=== PATIENT | male | born 1980 | race African-American/Black ===

== ENCOUNTER 2017-11-22 00:04 | Emergency (ER) | payer SELFPAY ==
[~2017-11-22] VITALS: Ht 182.9 cm; Wt 120.0 kg
[2017-11-22 00:07] VITALS: BP 173/91; PULSE 108; RESP 18; TEMP 98.6; O2SAT 100
[2017-11-22 00:13] VITALS: BP 168/88; PULSE 98; RESP 20; TEMP 98.6; O2SAT 98
[2017-11-22] MEDS ORDERED: KETOROLAC TROMETHAMINE 60 MG/2 ML (IM) VIAL IM ONE (00:45)
--- NOTE | 2017-11-22 00:57 | PD ---
HPI Chief Complaint: Back/ Neck Pain or Injury Time Seen by Provider: 00:29 Travel History International Travel<30 days: No Contact w/Intl Traveler<30days: No Traveled to known affect area: No History of Present Illness HPI Is a 37-year-old presents to the emergency department complaining of neck pain. He states he injured himself at work the other day when he was resting with his chin on his hand and then stood up quickly and felt pain in his neck. He states he had tightness in his neck but felt better after he stretched it out and slept. States he felt fine until today he was putting grease in his hair he feels like he was pushing down too hard on the top of his head and felt pain in his neck and it radiated to his left arm with some tingling. He has had pain and stiffness in his neck and tingling since. Otherwise had been feeling generally well and healthy. No other complaints. History Past Medical History Medical History: Denies Significant Hx Social History Alcohol Use: No Tobacco Use: Yes Allergies-Medications (Allergen,Severity, Reaction): Coded Allergies: No Known Allergies (Unverified , 11/22/17) Reported Meds & Prescriptions Reported Meds & Active Scripts Active No Active Prescriptions or Reported Medications Review of Systems Except as stated in HPI: all other systems reviewed are Neg Physical Exam Narrative GENERAL: 37-year-old man, no acute distress. SKIN: Focused skin assessment warm/dry. HEAD: Atraumatic. Normocephalic. EYES: Pupils equal and round. No scleral icterus. No injection or drainage. ENT: No nasal bleeding or discharge. Mucous membranes pink and moist. NECK: Trachea midline. No JVD. CARDIOVASCULAR: Regular rate and rhythm. No murmur appreciated. RESPIRATORY: No accessory muscle use. Clear to auscultation. Breath sounds equal bilaterally. GASTROINTESTINAL: Abdomen soft, non-tender, nondistended. Hepatic and splenic margins not palpable. MUSCULOSKELETAL: No obvious deformities. No clubbing. No cyanosis. No edema. NEUROLOGICAL: Awake and alert. Strength full and equal upper and lower extremities. Sensation intact to light touch both upper extremities. Full range of motion. Full movement. Minimal tenderness in the left paraspinous muscles in the left trapezius muscles. Some stiffness of range of motion of the neck. Data Data Last Documented VS Vital Signs Date Time Temp Pulse Resp B/P (MAP) Pulse Ox O2 Delivery O2 Flow Rate FiO2 11/22/17 00:13 98.6 98 20 168/88 (114) 98 Room Air Orders Orders Ct Cerv Spine W/O Contrast (11/22/17 ) Ketorolac Inj (Toradol Inj) (11/22/17 00:45) MDM Medical Decision Making Medical Screen Exam Complete: Yes Emergency Medical Condition: Yes Interpretation(s) CT cervical spine negative Differential Diagnosis Strain or sprain, neck strain with radiculopathy, herniated disc, neck injury, dissection, other Narrative Course Medical decision making 37-year-old man presents emerged from complaining of neck pain and some stiffness with some shooting pains in the left arm associated with rapid abnormal movement of the neck. Initially when he first stood up, now he was pushing down putting product in his hair. This does not really seem consistent with dissection. He is any significant bony injury. Will check CT scan of his neck. Likely supportive treatment. Diagnosis Primary Impression: Neck strain Additional Instructions: Take naproxen as prescribed. Drink plenty fluids stay well-hydrated. Follow-up with your primary doctor for not completely well in 3-5 days. Return to the emergency department for any worsening pain, numbness, tingling, weakness, or any other new or worsening symptoms. Med/Other Pt SpecificInfo: Prescription(s) given Scripts Naproxen (Naproxen) 500 Mg Tab 500 MG PO BID for 10 Days, #20 TAB 0 Refills Prov: Matty Elizabeth MD 11/22/17 Disposition: DISCHARGE HOME Condition: Stable Matty Elizabeth MD Nov 22, 2017 00:57
--- NOTE | 2017-11-22 01:27 | RADRPT ---
EXAM DATE: 11/22/2017 1:16 AM EDT AGE/SEX: 37 years / Male INDICATIONS: Trauma. Neck pain. CLINICAL DATA: This is the patient's initial encounter. Patient reports that signs and symptoms have been present for 2 days and indicates a pain score of 6/10. MEDICAL/SURGICAL HISTORY: None. Umbilical hernia repair. RADIATION DOSE: 22.02 CTDI (mGy) COMPARISON: No prior exams available for comparison. TECHNIQUE: Contiguous axial images were obtained using helical multirow detector technique. The vol umetric data was post-processed with multiplanar reconstruction in oblique axial, sagittal, and coron al planes. Using automated exposure control and adjustment of the mA and/or kV according to patient s ize, radiation dose was kept as low as reasonably achievable to obtain optimal diagnostic quality kartik ges. DICOM format image data is available electronically for review and comparison. FINDINGS: Vertebrae: Normal vertebral body height. Alignment: Normal. No subluxation. Discs: This space heights are preserved. There is mild anterior spurring at C5-6 and C6-7 levels. The axial images demonstrate that the vertebral bodies and posterior elements are intact. There is no large disc protrusion. Soft tissues are within normal limits. CONCLUSION: 1. Negative trauma CT Electronically signed by: Esau Zelaya MD 11/22/2017 1:26 AM EDT
[2017-11-22] MEDS ORDERED: NAPR500T2 PO (01:33)
== END 2017-11-22 01:47 | disposition home or self-care (01) ==
LOC: NEPC 00:04
DX: S16.1XXA Strain of muscle, fascia and tendon at neck level, initial encounter (principal); R20.2 Paresthesia of skin; M79.602 Pain in left arm; Z72.0 Tobacco use; X58.XXXA Exposure to other specified factors, initial encounter
CPT/HCPCS: 72125; 96372; 99283; J1885